=== PATIENT | female | born 1955 | race Caucasian/White ===

== ENCOUNTER 2016-12-23 06:48 | Day surgery (SDC) | payer BC ==
[~2016-12-23] VITALS: Ht 167.6 cm; Wt 68.0 kg
[2016-12-23] VITALS (9 sets, daily range): BP systolic 129–159; BP diastolic 80–100
[2016-12-23] MEDS: Gatifloxacin Opth Solution 0.5% LEFT EYE SCH ×3 (06:00→06:10)
[~2016-12-23 06:48] MED LIST: MULTIVITAMINS1 EAC2 ORAL
[2016-12-23] MEDS ORDERED: Sodium Hyaluronate 14 mg/ml 0.85ml ONE (07:05)
[2016-12-23] MEDS ORDERED: Povidone-Iodine 5% opth solution ONE (07:05)
[2016-12-23] MEDS: Phenylephrine 2.5% Op Soln LEFT EYE SCH ×3 (07:39→07:51)
[2016-12-23] MEDS: Tropicamide 1% Opth Soln LEFT EYE SCH ×3 (07:39→07:51)
[2016-12-23] MEDS: Akten 3.5% 1ml Btl LEFT EYE SCH ×3 (07:39→07:51)
[2016-12-23] MEDS: Diclofenac Sod 0.1% Op Soln LEFT EYE SCH ×3 (07:40→07:51)
[2016-12-23] MEDS: Tobradex Opth Susp 2.5ml LEFT EYE SCH ×3 (07:40→07:51)
--- NOTE | 2016-12-23 07:43 | Pre-Procedure Note/Attestation ---
Pre-Procedure Note/Attestation Complete Prior to Procedure Planned Procedure: left Procedure Narrative: cataract extraction with implant left eye Indications for Procedure Pre-Operative Diagnosis: cataract left eye Attestation I attest that I discussed the nature of the procedure; its benefits; risks and complications; and alternatives (and the risks and benefits of such alternatives ), prior to the procedure, with the patient (or the patient's legal credit and collections representative). I attest that, if there was a reasonable possibility of needing a blood transfusion, the patient (or the patient's legal credit and collections representative) was given the [facility] standardized written summary, pursuant to the Maurice Maribel Blood Safety Act ([place] Health and Safety Code # 1645, as amended). I attest that I re-evaluated the patient just prior to the surgery and that there has been no change in the patient's H&P, except as documented below: ALFREDO LOJA Dec 23, 2016 07:43
[2016-12-23] MEDS ORDERED: Midazolam 2mg/2ml Inj ONE (09:00)
[2016-12-23] MEDS ORDERED: fentaNYL 100 mcg/2 mL IV ONE (09:00)
[2016-12-23] MEDS ORDERED: LR 1000ml ONE (09:00)
--- NOTE | 2016-12-23 09:49 | Immediate Post-Op Evaluation ---
Immediate Post-Op Evalulation Immediate Post-Op Evalulation Procedure: cataract extraction left eye Date of Evaluation: Dec 23, 2016 Time of Evaluation: 09:49 IV Fluids: 300 Blood Pressure Systolic: 154 Blood Pressure Diastolic: 60 Pulse Rate: 77 Respiratory Rate: 14 O2 Sat by Pulse Oximetry: 99 Temperature (Fahrenheit): 98.0 Nausea: No Vomiting: No Complications none Patient Status: awake, reacts, patent Hydration Status: adequate Drug: none [id number] CRNA Dec 23, 2016 09:49
--- NOTE | 2016-12-23 09:50 | Brief Operative Note ---
Immediate Post Operative Note Operative Note Pre-op Diagnosis: cataract left eye Procedure: phacoemulsification of cataract with implant left eye Post-op Diagnosis: same as pre-op Surgeon: alfredo chavez Instrument Mechanic: none Anesthesiologist: fernando roblero crna Anesthesia: MAC Specimen: none Complications: none Condition: stable Estimated Blood Loss: none Drains: none Implant(s) used?: Yes ALFREDO CHAVEZ Dec 23, 2016 09:50
--- NOTE | 2016-12-23 10:33 | 48 Hour Post Anesthesia Eval ---
Post Anesthesia Evaluation Procedure: cataract extraction left eye Date of Evaluation: Dec 23, 2016 Time of Evaluation: 10:33 Blood Pressure Systolic: 129 0: 72 Pulse Rate: 67 Respiratory Rate: 14 O2 Sat by Pulse Oximetry: 98 Nausea: No Vomiting: No Hydration Status: adequate Cardiopulmonary Status: stable Mental Status/LOC: patient returned to baseline Post-Anesthesia Complications: none Follow-up care needed: N/A JENY STERN CRNA Dec 23, 2016 10:33
--- NOTE | 2016-12-23 10:42 | Anethesia Preoperative Eval ---
Anesthesia Pre-op PMH/ROS General Date of Evaluation: Dec 23, 2016 Time of Evaluation: 09:44 Anesthesiologist: yeni ASA Score: ASA 1 Mallampati Score Class I : Soft palate, uvula, fauces, pillars visible Class II: Soft palate, uvula, fauces visible Class III: Soft palate, base of uvula visible Class IV: Only hard plate visible Mallampati Classification: Class II Surgeon: scott Diagnosis: cataract extraction Surgical Procedure: cataract extraction Anesthesia History: none Family History: no anesthesia problems Allergies: Coded Allergies: Cultivated Oat Pollen (Verified Allergy, Severe, 12/23/16) Eyes and throat start to swell MERCURY (ELEMENTAL) (Verified Allergy, Severe, RASH; GENERALISED SWELLING , 12/22/16) Mold (Blue) Cheese (Verified Allergy, Severe, 12/23/16) Eyes and throat start to swell. Medications: see eMAR Past Medical History Cardiovascular: Denies: CAD, HTN, NM, arrhythmia, other, valve dz Pulmonary: Denies: COPD, MARYURI, asthma, other Gastrointestinal/Genitourinary: Denies: CRI, ESRD, GERD, other Neurologic/Psychiatric: Denies: CVA, TIA, dementia, depression/anxiety, other Endocrine: Denies: DM, hypothyroidism, other, steroids HEENT: Reports: cataract (L), Denies: KOOTENAI (L), KOOTENAI (R), cataract (R), glaucoma, other Hematology/Immune: Denies: DVT, anemia, bleeding disorder, other Musculoskeletal/Integumentary: Denies: DDD, DJD, OA, RA, edema, other Anesthesia Pre-op Phys. Exam Physician Exam Last Vital Signs Date Time Temp Pulse Resp B/P Pulse Ox O2 Delivery O2 Flow Rate FiO2 12/23/16 10:33 67 14 98 12/23/16 10:30 129/82 Room Air 12/23/16 09:43 98.3 Constitutional: NAD Neurologic: CN 2-12 intact Cardiovascular: RRR Respiratory: CTA Gastrointestinal: S/NT/ND Airway Exam Mallampati Classification 2 Mallampati Score: Class II MO: full ROM: full Dentures: no lower, no upper Anesthesia Pre-op A/P Studies Pre-op Studies: EKG - sr Risk Assessment & Plan Plan: mac Status Change Before Surgery: No Pre-Antibiotics Drug: none TARRILLION,JENY BUSINESS RELATIONS MANAGER Dec 23, 2016 10:42
[2016-12-23] MEDS ORDERED: BSS 15ml BTL ONE (10:47)
[2016-12-23] MEDS ORDERED: Dexamethasone 4mg/ml vial ONE (10:47)
[2016-12-23] MEDS ORDERED: Lidocaine 1% MPF 10mg/ml 5ml ONE (10:47)
[2016-12-23] MEDS ORDERED: EPINEPHrine 1mg/1ml Amp ONE (10:47)
[2016-12-23] MEDS ORDERED: BSS 500ml btl ONE (10:47)
--- NOTE | 2016-12-23 16:15 | Operative Note - Dictated ---
DATE OF OPERATION: 12/23/2016 PREOPERATIVE DIAGNOSIS: Cataract, left eye. POSTOPERATIVE DIAGNOSIS: Cataract, left eye. PROCEDURE: Phacoemulsification cataract, left eye with placement of posterior chamber intraocular lens. SURGEON: Rubens Burton M.D. ENVIRONMENTAL PROTECTION GEOLOGIST: None. ANESTHESIA: MAC/topical. ANESTHESIOLOGIST: Linda Frazier CRNA. INDICATION FOR PROCEDURE: Poor vision, left eye. DESCRIPTION OF FINDINGS: Dense nuclear sclerotic cataract, left eye. DESCRIPTION OF PROCEDURE: The patient received a topical anesthetic block consisting of 3.5% Akten eye drops. The eye was then prepped and draped in usual manner. A lid speculum was placed. An operating Zeiss microscope was positioned. The temporal corneal groove was made with the sukhi blade. A SuperSharp blade a stab incision at the 6 o'clock position. A 0.1 mL of 1% nonpreserved intracameral lidocaine was injected. Healon was instilled into the anterior chamber and a 2.5/2.8 mm trapezoidal sukhi blade was used to complete the temporal corneal wound. A cystotome was used to create an anterior capsular flap. Utrata forceps were used to complete the capsulorrhexis. BSS on a cannula was used to hydrodissect the nucleus. The lens nucleus was phacoemulsified in a phaco-fracture technique. Remaining cortical material was removed with the I/A and the posterior capsule polished with the I/A on Cap vac. Healon was instilled into the capsular bag and anterior chamber, and an Orozco foldable one-piece posterior intraocular lens, model ZCB00, power 23.0 diopter, serial number #[id number] was placed in the injector. The lens was put into the capsular bag. The I/A tip was used to remove the Healon and position the lens. The wound edge was hydrated with BSS and a blunt-tipped cannula. The wound was checked and found to be watertight. The lid speculum was removed and a drop of TobraDex and Zymaxid was placed. A clear plastic shield was taped over the eye. The patient tolerated well and left the operating room in good condition. Rubens Burton M.D. ([facility] [place]) DR: SEBLE JOB#: [id number] CC:
== END 2016-12-23 11:15 | disposition home or self-care (01) ==
LOC: SUR 06:48
DX: H25.12 Age-related nuclear cataract, left eye (principal); Z87.891 Personal history of nicotine dependence; Z91.09 Other allergy status, other than to drugs and biological substances
CPT/HCPCS: 66984; J0171; J1100; J2250; J3010; J7120; V2632; 94003; 94150